=== PATIENT | female | born 1950 | race Caucasian/White ===

== ENCOUNTER 2016-09-11 14:28 | Emergency (ER) | payer OTHER ==
[2016-09-11] MEDS ORDERED: Aspirin 81 MG Tab.Chew CHEW ONE (14:30)
[2016-09-11] MEDS ORDERED: Clopidogrel 75 MG Tab PO ONE (14:30)
[2016-09-11] MEDS ORDERED: Famotidine 20 MG/2 ML SDV IVPUSH ONE (14:30)
[2016-09-11] MEDS ORDERED: Metoprolol Tartrate 5 MG/5 ML SDV IVPUSH ONE (14:30)
[2016-09-11] MEDS ORDERED: Sodium Chloride 0.9% 10 ML Syringe FLUSH PRN (14:30)
--- NOTE | 2016-09-11 14:30 | EDM.PDOC ---
ED HISTORY OF PRESENT ILLNESS - General Chief Complaint: Chest Pain Stated Complaint: Chest pain Time Seen by Provider: 09/11/16 14:30 Source of Information: Reports: Patient, Old records ([facility] chart/EMR) History Limitations: Reports: No limitations - History of Present Illness INITIAL COMMENTS - FREE TEXT/NARRATIVE: The patient drove herself to the emergency room via private automobile for evaluation of 5/10 retrosternal chest pressure which is constant in nature and started about one month ago, however progressive symptoms during the last 4 days. She briefly went to her regular provider, Alecia Alcantar PA-C, at the [facility] in [place], who sent her immediately to our facility with no treatment clinic. Her symptoms are similar to those when she had with her previous stent. Her chest pain does radiate into the upper lumbar/lower thoracic region with possible occasional mild diaphoresis and dyspnea with activity, although her overall activity level is low. The patient denies any heart flutter, dizziness, orthostasis, orthopnea, paresthesias, recent decreased exercise tolerance, or any other anginal-type symptoms. No recent history of abdominal pain, heartburn, nausea, diarrhea, melena, gross hematochezia, or any food intolerance, including fatty foods, etc. with a normal bowel movement at about 9 a.m. this morning. She has had a nonproductive chronic cough with occasional wheezes during the last month, however no history of fever, known exposure to infection, etc. She does continue to smoke and did not get her influenza booster this season or had a Pneumovax. Symptom Onset Date: 09/06/16 Timing/Duration: Reports: Constant, Other (As above) Location, General: Reports: chest, back, radiates to: (As above). Denies: head , face, neck, abdomen, upper extremity, left, upper extremity, right Quality: Reports: Pressure, Same as previous episode Improves with: Reports: None Worsens with: Reports: None Context, General: Reports: Other (As above) Associated Symptoms (General): Reports: chest pain, cough, diaphoresis, shortness of breath. Denies: confusion, cough w sputum, fever/chills, headaches , loss of appetite, malaise, nausea/vomiting, syncope, weakness Treatments MANAGER FORENSIC: Reports: Other (see below) (None) - Related Data Allergies/ADRs: Allergies Allergy/AdvReac Type Severity Reaction Status Date / Time No Known Allergies Allergy Verified 11/23/13 15:03 Home Meds: Home Meds Albuterol/Ipratropium [DuoNeb 3.0-0.5 MG/3 ML] 3 ml NEB Q6HRRT #60 neb 09/11/16 [Rx] Aspirin [Children's Aspirin] 81 mg PO BEDTIME 09/11/16 [History] Carvedilol 12.5 mg PO Q12HR 09/11/16 [History] Clopidogrel [Plavix] 75 mg PO QAM 09/11/16 [History] Furosemide [Lasix] 20 mg PO QAM PRN 09/11/16 [History] Guaifenesin/Pseudoephedrne HCl [Mucinex D ER 600-60 mg Tablet] 1 each PO BID # 20 tab.er.12h 09/11/16 [Rx] Isosorbide Mononitrate [Isosorbide Mononitrate ER] 15 mg PO QAM 09/11/16 [ History] Lisinopril 10 mg PO QAM 09/11/16 [History] Nitroglycerin [Nitrostat] 0.4 mg SL ASDIRECTED PRN 09/11/16 [History] Pravastatin [Pravachol] 40 mg PO BEDTIME 09/11/16 [History] Solifenacin [Vesicare] 5 mg PO QAM 09/11/16 [History] Past Medical History HEENT History: Reports: Impaired vision, Other (see below). Denies: Allergic rhinitis, Glaucoma, Hard of hearing, Macular degeneration, Retinal detachment Other HEENT History: Reading glasses Cardiovascular History: Reports: CAD, Heart Failure, High cholesterol, Hypertension, NE, PTCA, Stents, Other (see below). Denies: Afib, Aneurysm, Arrhythmia, Blood clots/VTE/DVT, Heart murmur, Pacemaker, PVD, Syncope Other Cardiovascular History: Inferior STEMI on 03/18/13 requiring procedure as below Respiratory History: Reports: COPD, Intubation, previous, Other (see below). Denies: Asthma, Bronchitis, recurrent, PE, Pneumonia, recurrent, Pneumothorax, Sleep apnea Other Respiratory History: History of "cracked left ribs in 2005 Gastrointestinal History: Reports: Colon polyp, Gastritis, Helicobacter pylori, Irritable bowel syndrome, Other (see below). Denies: Celiac disease, Cholelithiasis, Chronic constipation, Chronic diarrhea, Diverticulosis, Fecal incontinence, GERD, GI bleed, Hepatitis, Hiatal hernia, Inflammatory bowel disease, Jaundice, Pancreatitis, PUD Other Gastrointestinal History: Previously treated H. pylori in November 2014 Genitourinary History: Reports: Urinary incontinence, Other (see below). Denies : Chronic renal insuffiency, Renal calculus, STD, UTI, recurrent Other Genitourinary History: Urinary stress incontinence OCCUPATIONAL HEALTH PHYSIOTHERAPIST History: Reports: Dysfunctional uterine bleeding, . Denies: Endometriosis, Fibroids, Spontaneous : 3 Para: 3 (Full term without complications during pregnancies or deliveries, despite me for C-sections x3 secondary to her failure to progress) LMP (Approximate): other Other OB/BYN History: Dysfunctional uterine bleeding including secondary hemorrhagic shock on 12/22/07 with blood transfusions as below, surgical menopause as below Musculoskeletal History: Reports: Arthritis, Back pain, chronic, Neck pain, chronic, Osteoarthritis, Osteoporosis, RA, Other (see below). Denies: Amputation, Fracture, Fibromyalgia, Gout, SLE Other Musculoskeletal History: Scoliosis-mild Neurological History: Reports: Neuropathy, peripheral. Denies: Cerebral aneurysms, Concussion, CVA, Headaches, chronic, Head trauma, Migraines, MS, Neuropathy, diabetic, Parkinson's, Seizure, TIA, Vertigo Other Neuro History: Borderline peripheral neuropathy Psychiatric History: Reports: None. Denies: Abuse, victim of, ADD, ADHD, Addiction, Anxiety, Depression, Hallucinations, Psych Hospitalization(s), PTSD, Suicide attempt, Suicidal ideation Endocrine/Metabolic History: Reports: Obesity/BMI 30+, Osteoporosis. Denies: Diabetes, type I, Diabetes, type II, Hypothyroidism, IDDM Hematologic History: Reports: Anemia, Blood transfusion(s), Other (see below). Denies: Iron deficiency Other Hematologic History: Blood transfusion of 6 units of packed red blood cells in December 2007 secondary to dysfunctional uterine bleeding as above Immunologic History: Reports: None. Denies: AIDS, HIV, SLE Oncologic (Cancer) History: Reports: None. Denies: Basal cell carcinoma, Cervix , Hodgkin's Lymphoma, Leukemia, Lymphoma, Malignant melanoma, Non-Hodgkin's Lymphoma, Squamous cell carcinoma, Uterine Dermatologic History: Reports: None. Denies: Eczema, Psoriasis, Venous stasis dermatitis - Infectious Disease History Infectious Disease History: Reports: Chicken pox, Helicobacter pylori (Positive H. pylori on 12/08/14), Measles. Denies: C-difficile, Meningitis, Mononucleosis , MRSA, Mumps, Pertussis (whooping cough), Rheumatic Fever, Rubella, Scarlet fever, Shingles, TB, VRE - Past Surgical History Head Surgeries/Procedures: Reports: None HEENT Surgical History: Reports: LASIK, Oral surgery, Tonsillectomy, Other (see below). Denies: Adenoidectomy, Cataract surgery, Eye surgery, Laser surgery, Myringotomy w tube(s), Naso-sinus surgery Other HEENT Surgeries/Procedures: Tonsillectomy age 13, bilateral LASIK in about 1996, [place] teeth extraction x4 in about 1969 Cardiovascular Surgical History: Reports: Coronary artery stent, Other (see below). Denies: Coronary artery bypass, Pacer, Varicose, Vascular surgery Other Cardiovascular Surgeries/Procedures: PTCA/stent x2 of the right coronary artery on with drug-eluting stents placed and previous aspiration of thrombectomy at that time Respiratory Surgical History: Reports: None. Denies: Lung Biopsies, Thoracentesis GI Surgical History: Reports: None, Colonoscopy, Polypectomy, Other (see below) . Denies: Appendectomy, EGD, Hernia, abdominal, Hernia, inguinal, Hernia repair /other Other GI Surgeries/Procedures: Colonoscopy with polypectomy for benign lesions in about 2002 Female Surgical History: Reports: Hysterectomy, Salpingo-oophorectomy, Other (see below). Denies: Cystoscopy, Tubal ligation Other Female Surgeries/Procedures: Complete hysterectomy including bilateral salpingo-oophorectomy and concomitant bladder suspension on 01/01/08 secondary to severe dysfunctional uterine bleeding with ovarian cyst at that time Endocrine Surgical History: Reports: None. Denies: Thyroid biopsy Neurological Surgical History: Reports: None. Denies: C-Spine, Intracranial, Laminectomy, Lumbar spine, Spinal fusion, Vertebroplasty Musculoskeletal Surgical History: Reports: Joint replacement, Knee replacement, Other (see below). Denies: Arthroscopic procedure, Carpal tunnel, Ganglion cyst , ORIF, Shoulder surgery Other Musculoskeletal Surgeries/Procedures:: Bilateral TKA in about 2010 Oncologic Surgical History: Reports: None Dermatological Surgical History: Reports: None - Past Imaging History Past Imaging History: Reports: Angiography (Last heart catheterization on ), Cardiac echo (03/19/13 with ejection fraction of 55%), CAT scan (CT of the brain on 04/30/15 and 07/20/14), Mammogram (Last on 06/02/15), MRI (Thoracic spine on 09/22/13), Stress testing (Low level cardiac stress test on 04/02/13), Ultrasound (Soft tissue ultrasound of the left leg on 06/02/15), Venous doppler (Left leg on 07/29/14) Social & Family History - Family History Cardiac: Reports: CAD, High cholesterol, NE, Other (see below) Other Cardiac Family History: Mother with NE in her 60s which did require a four -vessel CABG, maternal grandfather with fatal NE at age 40, maternal aunt with fatal NE in her 70s, hyperlipidemia in brother, mother, maternal grandfather, and maternal aunt Respiratory: Reports: COPD, Other (see below) Other Respiratory Family Hisory: Father with COPD and history of tobacco use Musculoskeletal: Reports: RA, Other (see below) Other Musculoskeletal Family History: Father with severe rheumatoid arthritis Neurological: Reports: Parkinson's, Other (see below) Other Neurological Family History: Mother with Parkinson's disease, son with fatal cerebral cyst benign in nature at age 28 Endocrine/Metabolic: Reports: Diabetes, type II, Hypothyroidism, IDDM, Other ( see below) Other Endocrine/Metabolic Family History: Mother with IDDM and history of hypothyroidism secondary to iridectomy possibly secondary to goiter Oncologic: Reports: Breast, Other (see below) Other Oncologic Family History: 3 paternal nieces and a paternal half-sister with breast cancer in a paternal grandmother with fatal possible stomach cancer - Tobacco Use Smoking Status *Q: Current Every Day Smoker Tobacco Use Within Last Twelve Months: Cigarettes Years of Tobacco use: 48 Packs/Tins Daily: 0.5 (Started smoking at age 17 with maximum use of 1.5 packs per day) Smoking Cessation Information Provided To Patient: Yes Second Hand Smoke Exposure: No Second Hand Smoke Education Provided: No - Caffeine Use Caffeine Use: Reports: Soda (One soda per day). Denies: Coffee, Energy drinks, Tea - Alcohol Use Alcohol Use History: Yes Days Per Week of Alcohol Use: 0 (No previous DWIs, problems with alcohol abuse, etc.) Number of Drinks Per Day: 1 (Usually beer every 6 months) Total Drinks Per Week: 0 - Recreational Drug Use Recreational Drug Use: No Drug Use in Last 12 Months: No Recreational Drug Type: Denies: Amphetamines (Speed), Cocaine, Heroin, Inhalants (Glues, Solvents, Aerosols), LSD (Acid), Marijuana/Hashish, Methamphetamine, Morphine - Living Situation & Occupation Living situation: Reports: (1968, 3 children, works in the [employer] previously at [employer] longterm and currently in the [employer]), with family () Occupation: employed (As above) ED ROS GENERAL - Review of Systems Review Of Systems: ROS reveals no pertinent complaints other than HPI. ED EXAM, GENERAL - Physical Exam Exam: See Below Exam Limited By: No limitations General Appearance: alert, WD/WN, no apparent distress, anxious (Mild) Eye Exam: bilateral eye: EOMI, normal inspection (No nystagmus), PERRL Ears: normal external exam, normal canal, hearing grossly normal, normal TMs Nose: normal inspection, normal mucosa, no blood, clear rhinorrhea (Mild) Throat/Mouth: Normal inspection, Normal lips, Normal gums, Normal oropharynx, Normal voice, No airway compromise. No: Normal teeth (Occasional missing teeth) , Dysphagia, Perioral cyanosis Head: atraumatic, normocephalic. No: facial swelling, facial tenderness, sinus tenderness Neck: normal inspection, supple, non-tender, full range of motion. No: carotid bruit, lymphadenopathy (L), lymphadenopathy (R), thyromegaly Respiratory/Chest: no accessory muscle use, chest non-tender, rhonchi ( Occasional mild diffuse bilateral), wheezing (Occasional diffuse bilateral). No : rales, pleural rub, retractions Cardiovascular: normal peripheral pulses, regular rate, rhythm, no edema, no gallop, no JVD, no murmur, no rub. No: gallop/S3, gallop/S4, friction rub Peripheral Pulses: 3+: radial (L), radial (R), dorsalis pedis (L), dorsalis pedis (R) GI/Abdominal: normal bowel sounds, soft, non tender, no organomegaly, no distention, no abnormal bruit, no mass, other (Obese). No: guarding (Female) Exam: Deferred Rectal (Female) Exam: Deferred Back Exam: normal inspection, full range of motion. No: CVA tenderness (L), CVA tenderness (R), muscle spasm Extremities: normal inspection, normal range of motion, non-tender, no pedal edema, normal capillary refill. No: Rohan's Sign Neurological: alert, oriented, CN II-XII intact, normal cognition, normal gait, normal reflexes (Negative Babinski), no motor/sensory deficits Psychiatric: anxious (Mild), depressed mood (Borderline) Skin Exam: Warm, Dry, Intact, Normal color, No rash. No: Diaphoretic, Wound/ incision Lymphatic: no adenopathy EKG INTERPRETATION EKG Date: 09/11/16 Time: 14:24 Rhythm: NSR Rate (beats/min): 76 [place]: normal (Neutral cardiac axis) P-wave: enlarged (Mild Diffuse biphasic P waves with pulmonary hypertension by EKG) QRS: normal (QRS interval of 0.09 seconds with resolution of previous T-wave inversion in lead 3) ST-T: normal QT: normal MO/PQ Interval: 0.17 seconds Comparison: change from previous EKG (As above since 05/20/13) EKG Interpretation Comments: No acute ischemic changes Course - Vital Signs Last Recorded V/S: Last Vital Signs Temp 36.8 C 09/11/16 14:43 Pulse 67 09/11/16 15:50 Resp 19 09/11/16 15:50 BP 154/86 H 09/11/16 15:50 Pulse Ox 99 09/11/16 15:50 Vital Signs - 24 hr 09/11/16 09/11/16 09/11/16 14:30 14:43 14:50 Temperature [ 36.9 C 36.8 C Oral] Pulse, Peripheral Pulse, 74 73 69 Peripheral [ Right Pulse Oximetry] Respiratory 20 20 22 H Rate Blood Pressure Blood Pressure 158/82 H 157/75 H [Left Lower Arm ] Blood Pressure 164/90 H [Right Upper Arm] O2 Sat by Pulse 98 98 98 Oximetry O2 Sat by Pulse 98 Oximetry [ Nasal Cannula] 09/11/16 09/11/16 09/11/16 15:01 15:15 15:50 Temperature [ Oral] Pulse, 76 Peripheral Pulse, 70 67 Peripheral [ Right Pulse Oximetry] Respiratory 23 H 19 Rate Blood Pressure 158/82 H Blood Pressure 154/79 H 154/86 H [Left Lower Arm ] Blood Pressure [Right Upper Arm] O2 Sat by Pulse 98 99 Oximetry O2 Sat by Pulse Oximetry [ Nasal Cannula] - Orders/Labs/Meds Orders: Active Orders 24 hr Category Date Time Status Cardiac Monitoring [RC] . DIRECTED Care 09/11/16 14:30 Active EKG Documentation Completion [RC] ASDIRECTED Care 09/11/16 14:30 Active EKG Documentation Completion [RC] STAT Care 09/11/16 14:30 Inactive Oxygen Therapy, ED [RC] CONTINUOUS Care 09/11/16 14:30 Active Peripheral IV Care [RC] . DIRECTED Care 09/11/16 14:30 Active Peripheral IV Care [RC] . DIRECTED Care 09/11/16 14:30 Inactive Pulse Oximetry [RC] CONTINUOUS Care 09/11/16 14:30 Active Up With Assistance [RC] PFP Care 09/11/16 14:30 Active Vital Signs [RC] PFP Care 09/11/16 14:30 Active Nothing per Oral Now Diet [DIET] Diet 09/11/16 Breakfast Active Chest 1V Frontal [CR] Stat Exams 09/11/16 14:30 Taken Sodium Chloride 0.9% [Saline Flush] Med 09/11/16 14:30 Active 10 ml FLUSH ASDIRECTED PRN Obtain Past Medical Record [OM.PC] Urgent Oth 09/11/16 14:30 Active Peripheral IV Insertion Adult [OM.PC] Stat Oth 09/11/16 14:30 Ordered Resuscitation Status Stat Resus Stat 09/11/16 14:30 Ordered Medication Orders Sodium Chloride (Saline Flush) 10 ml FLUSH ASDIRECTED PRN PRN Reason: Keep Vein Open Last Admin: 09/11/16 15:01 Dose: 10 ml Labs: Laboratory Tests 09/11/16 09/11/16 09/11/16 Range/Units 14:30 14:40 14:40 WBC 9.3 (4.0-10.2) K/uL RBC 4.70 (3.77-5.09) M/uL Hgb 14.6 (11.7-15.5) g/dL Hct 44.3 (34.0-46.0) % MCV 94.3 (84.0-98.0) fL MCH 31.1 (28.2-33.3) pg MCHC 33.0 (31.7-36.0) g/dL RDW 13.8 (11.2-14.1) % Plt Count 242 (150-350) K/uL Neut % (Auto) 57.4 (45.0-80.0) % Lymph % (Auto) 29.4 (10.0-50.0) % [place] % (Auto) 9.9 (2.0-14.0) % Eos % (Auto) 3.0 (0.0-5.0) % Baso % (Auto) 0.3 (0.0-2.0) % Neut # 5.31 (1.40-7.00) K/uL Lymph # 2.73 (0.50-3.50) K/uL [place] # 0.92 (0.00-1.00) K/uL Eos # 0.28 (0.00-0.50) K/uL Baso # 0.03 (0.00-0.20) K/uL PT 11.0 (9.8-11.7) SEC INR 1.0 APTT 27.5 (23.5-30.0) SEC D-Dimer, Quantitative 245 (0-400) ng/mL Sodium (136-145) mmol/L Potassium (3.5-5.1) mmol/L Chloride (98-107) mmol/L Carbon Dioxide (21.0-32.0) mmol/L BUN (7-18) mg/dL Creatinine (0.51-1.17) mg/dL Est Cr Clr Drug Dosing mL/min Estimated GFR (MDRD) mL/min Glucose (74-106) mg/dL Lactic Acid (0.4-2.0) mmol/L Uric Acid (2.6-7.2) mg/dL Calcium (8.5-10.1) mg/dL Magnesium (1.8-2.4) mg/dL Total Bilirubin (0.2-1.0) mg/dL AST (15-37) U/L ALT (12-78) U/L Alkaline Phosphatase (46-116) IU/L Creatine Kinase (26-308) U/L Creatine Kinase Index (0.0-2.5) % CK-MB (CK-2) (0.00-3.60) ng/mL Troponin I (0.000-0.056) ng/mL Het-[id number]-Cqktlhzepeo Pept (0-125) pg/mL Total Protein (6.4-8.2) g/dL Albumin (3.4-5.0) g/dL TSH, Ultra Sensitive (0.358-3.740) mIU/mL H. pylori IgG Antibody (NEGATIVE) 09/11/16 09/11/16 09/11/16 Range/Units 14:40 14:40 14:40 WBC (4.0-10.2) K/uL RBC (3.77-5.09) M/uL Hgb (11.7-15.5) g/dL Hct (34.0-46.0) % MCV (84.0-98.0) fL MCH (28.2-33.3) pg MCHC (31.7-36.0) g/dL RDW (11.2-14.1) % Plt Count (150-350) K/uL Neut % (Auto) (45.0-80.0) % Lymph % (Auto) (10.0-50.0) % [place] % (Auto) (2.0-14.0) % Eos % (Auto) (0.0-5.0) % Baso % (Auto) (0.0-2.0) % Neut # (1.40-7.00) K/uL Lymph # (0.50-3.50) K/uL [place] # (0.00-1.00) K/uL Eos # (0.00-0.50) K/uL Baso # (0.00-0.20) K/uL PT (9.8-11.7) SEC INR APTT (23.5-30.0) SEC D-Dimer, Quantitative (0-400) ng/mL Sodium 142 (136-145) mmol/L Potassium 4.1 (3.5-5.1) mmol/L Chloride 104 (98-107) mmol/L Carbon Dioxide 29.9 (21.0-32.0) mmol/L BUN 25 H (7-18) mg/dL Creatinine 0.89 (0.51-1.17) mg/dL Est Cr Clr Drug Dosing 55.14 mL/min Estimated GFR (MDRD) > 60 mL/min Glucose 106 (74-106) mg/dL Lactic Acid 1.1 (0.4-2.0) mmol/L Uric Acid 4.9 (2.6-7.2) mg/dL Calcium 8.6 (8.5-10.1) mg/dL Magnesium 1.9 (1.8-2.4) mg/dL Total Bilirubin 0.4 (0.2-1.0) mg/dL AST 16 (15-37) U/L ALT 31 (12-78) U/L Alkaline Phosphatase 74 (46-116) IU/L Creatine Kinase 227 (26-308) U/L Creatine Kinase Index 1.5 (0.0-2.5) % CK-MB (CK-2) 3.50 (0.00-3.60) ng/mL Troponin I 0.000 (0.000-0.056) ng/mL [id number] Pept 153 H (0-125) pg/mL Total Protein 7.3 (6.4-8.2) g/dL Albumin 3.6 (3.4-5.0) g/dL TSH, Ultra Sensitive 1.159 (0.358-3.740) mIU/mL H. pylori IgG Antibody Negative (NEGATIVE) Meds: Medications Generic Name Dose Route Start Last Admin Trade Name Freq PRN Reason Stop Dose Admin Sodium Chloride 10 ml 09/11/16 14:30 09/11/16 15:01 Saline Flush FLUSH 10 ml ASDIRECTED PRN Administration Keep Vein Open Discontinued Medications Generic Name Dose Route Start Last Admin Trade Name Yg PRN Reason Stop Dose Admin Aspirin 324 mg 09/11/16 14:30 09/11/16 14:58 Aspirin CHEW 09/11/16 14:31 324 mg ONETIME ONE Administration Clopidogrel Bisulfate 300 mg 09/11/16 14:30 09/11/16 14:58 Plavix PO 09/11/16 14:31 300 mg ONETIME ONE Administration Famotidine 40 mg 09/11/16 14:30 09/11/16 15:00 Pepcid IVPUSH 09/11/16 14:31 40 mg ONETIME ONE Administration Methylprednisolone Acetate 80 mg 09/11/16 15:35 09/11/16 15:44 Depo-Medrol IM 09/11/16 15:36 80 mg ONETIME ONE Administration Metoprolol Tartrate 2.5 mg 09/11/16 14:30 09/11/16 15:01 Lopressor IVPUSH 09/11/16 14:31 2.5 mg ONETIME ONE Administration - Radiology Interpretation Free Text/Narrative:: Front Office Coordinator shows normal sinus rhythm with heart rate in the 70s to 80s with no ectopy or arrhythmia Chest x-ray, portable, shows moderate to severe COPD changes with mild pulmonary hypertension and/or borderline centralized CHF with moderate cardiomegaly and aortic valve calcification with mild prominence of the proximal aortic arch. No pulmonary infiltrates or pneumothorax Departure - Departure Time of Disposition: 16:10 Disposition: Home, Self-Care 01 Condition: good Clinical Impression: Tobacco abuse counseling Coronary artery disease Qualifiers: Coronary Disease-Associated Artery/Lesion type: pala artery [place] vs. transplanted heart: pala heart Associated angina: with stable angina Qualified Code(s): I25.118 - Atherosclerotic heart disease of [place] coronary artery with other forms of angina pectoris COPD (chronic obstructive pulmonary disease) Qualifiers: COPD type: emphysema Emphysema type: panlobular Qualified Code(s): J43.1 - Panlobular emphysema Hypertension Qualifiers: Hypertension type: essential hypertension Qualified Code(s): I10 - Essential ( primary) hypertension Hyperlipidemia Qualifiers: Hyperlipidemia type: unspecified Qualified Code(s): E78.5 - Hyperlipidemia, unspecified Osteoarthritis Qualifiers: Osteoarthritis location: multiple joints Osteoarthritis type: primary Qualified Code(s): M15.0 - Primary generalized (osteo)arthritis Prescriptions: Albuterol/Ipratropium [DuoNeb 3.0-0.5 MG/3 ML] 3 ml NEB Q6HRRT #60 neb Guaifenesin/Pseudoephedrne HCl [Mucinex D ER 600-60 mg Tablet] 1 each PO BID # 20 tab.er.12h Referrals: Alecia Stone PA-C [Primary Care Provider] - Forms: ED Department Discharge, Return to Work/School Form Additional Instructions: 1. Followup with your regular provider in 10-14 days as directed. 2. Discuss possible scheduling of lung function test/PFTs and/or further cardiac evaluation, including a Cardiolite stress test at followup visit depending on her clinical course 3. Consider increase of your Imdur therapy at followup 4. Discuss recommended update of your routine preventative healthcare, including influenza booster, Pneumovax, colonoscopy, mammogram, etc. 5. Work excuse- See Form 6. BenGay or equivalent, heating pad, and/or ice packs as directed. 7. Tylenol 650 mg by mouth every 4 hours and/or OTC ibuprofen 2-3 tabs by mouth every 6 hours with food as directed./needed. 8. Stop all tobacco use CELINA as directed/per provided information and consider contacting Quit LIne, etc.. - Problem List & Annotations (1) Coronary artery disease SNOMED Code(s): 82274014 Code(s): I25.10 - ATHSCL HEART DISEASE OF [place] CORONARY ARTERY W/O ANG PCTRS Status: Acute Priority: High Current Visit: Yes Annotation/Comment :: Recent chest pain as above with negative EKG, cardiac enzymes, etc. Only mild borderline BNP elevation with no clinical evidence of significant CHF. Various therapeutic options were discussed with the patient, who wishes to consider possible increase of her current Imdur. Further cardiac workup depending on her clinical course as per discharge instructions. Work excuse provided. Chest pain protocol was initiated in the emergency room including low -dose IV Lopressor Qualifiers: Coronary Disease-Associated Artery/Lesion type: pala artery [place] vs. transplanted heart: pala heart Associated angina: with stable angina Qualified Code(s): I25.118 - Atherosclerotic heart disease of [place] coronary artery with other forms of angina pectoris (2) COPD (chronic obstructive pulmonary disease) SNOMED Code(s): 09535209 Code(s): J44.9 - CHRONIC OBSTRUCTIVE PULMONARY DISEASE, UNSPECIFIED Status : Chronic Priority: Medium Current Visit: Yes Annotation/Comment:: COPD under moderate control based on clinical exam. Various therapeutic options were discussed with the patient agreeing to restart her previous distant nebulizer therapy. Continue to observe closely by her regular provider with consideration of PFTs as per discharge instructions. IM Depo-Medrol given in the emergency room. No evidence of recurrent bronchitis, pneumonia, etc. at this time with no indication for antibiotic therapy. Add Mucinex DM as a mucolytic agent Qualifiers: COPD type: emphysema Emphysema type: panlobular Qualified Code(s): J43.1 - Panlobular emphysema (3) Hyperlipidemia SNOMED Code(s): 96914925 Code(s): E78.5 - HYPERLIPIDEMIA, UNSPECIFIED Status: Chronic Priority: Medium Current Visit: Yes Annotation/Comment:: Currently under therapy Qualifiers: Hyperlipidemia type: unspecified Qualified Code(s): E78.5 - Hyperlipidemia , unspecified (4) Hypertension SNOMED Code(s): 08774628 Code(s): I10 - ESSENTIAL (PRIMARY) HYPERTENSION Status: Chronic Priority : Medium Current Visit: Yes Annotation/Comment:: Blood pressures mildly elevated in the emergency room. She would benefit from increase of her Imdur as above Qualifiers: Hypertension type: essential hypertension Qualified Code(s): I10 - Essential (primary) hypertension (5) Osteoarthritis SNOMED Code(s): 923169124 Code(s): M19.90 - UNSPECIFIED OSTEOARTHRITIS, UNSPECIFIED SITE Status: Chronic Priority: Medium Current Visit: Yes Annotation/Comment:: Stable by patient history with exception of back pain as above. Symptomatic relief as per discharge instructions Qualifiers: Osteoarthritis location: multiple joints Osteoarthritis type: primary Qualified Code(s): M15.0 - Primary generalized (osteo)arthritis (6) Tobacco abuse counseling SNOMED Code(s): 810822791, 367880450, 772596068 Code(s): Z71.6 - TOBACCO ABUSE COUNSELING Status: Chronic Priority: Medium Current Visit: Yes Annotation/Comment:: Tobacco cessation strongly encouraged with information provided - Problem List Review Problem List Initiated/Reviewed/Updated: Yes - My Orders Last 24 Hours: My Active Orders 09/11/16 14:30 Cardiac Monitoring [RC] . DIRECTED EKG Documentation Completion [RC] ASDIRECTED EKG Documentation Completion [RC] STAT Oxygen Therapy, ED [RC] CONTINUOUS Peripheral IV Care [RC] . DIRECTED Peripheral IV Care [RC] . DIRECTED Pulse Oximetry [RC] CONTINUOUS Up With Assistance [RC] PFP Vital Signs [RC] PFP Chest 1V Frontal [CR] Stat Sodium Chloride 0.9% [Saline Flush] 10 ml FLUSH ASDIRECTED PRN Obtain Past Medical Record [OM.PC] Urgent Peripheral IV Insertion Adult [OM.PC] Stat Resuscitation Status Stat 09/11/16 Breakfast Nothing per Oral Now Diet [DIET] - Assessment/Plan Last 24 Hours: My Active Orders 09/11/16 14:30 Cardiac Monitoring [RC] . DIRECTED EKG Documentation Completion [RC] ASDIRECTED EKG Documentation Completion [RC] STAT Oxygen Therapy, ED [RC] CONTINUOUS Peripheral IV Care [RC] . DIRECTED Peripheral IV Care [RC] . DIRECTED Pulse Oximetry [RC] CONTINUOUS Up With Assistance [RC] PFP Vital Signs [RC] PFP Chest 1V Frontal [CR] Stat Sodium Chloride 0.9% [Saline Flush] 10 ml FLUSH ASDIRECTED PRN Obtain Past Medical Record [OM.PC] Urgent Peripheral IV Insertion Adult [OM.PC] Stat Resuscitation Status Stat 09/11/16 Breakfast Nothing per Oral Now Diet [DIET] Assessment:: As above Plan: As above.
[2016-09-11 15:14] LABS: CHLORIDE,CL 104 mmol/L (98-107); SODIUM,NA 142 mmol/L (136-145)
[2016-09-11] MEDS ORDERED: methylPREDNISolone Acetate 80 MG/ML SDV IM ONE (15:35)
[2016-09-11 16:12] VITALS: BP 154/86
== END 2016-09-11 16:10 | disposition home or self-care (01) ==
LOC: LL.ED 14:28
DX: I25.118 Atherosclerotic heart disease of native coronary artery with other forms of angina pectoris (principal); J43.1 Panlobular emphysema; E78.5 Hyperlipidemia, unspecified; M15.0 Primary generalized (osteo)arthritis; I11.0 Hypertensive heart disease with heart failure; E78.00 Pure hypercholesterolemia, unspecified; I25.2 Old myocardial infarction; Z79.82 Long term (current) use of aspirin; Z72.0 Tobacco use
CPT/HCPCS: 36415; 71010; 80053; 82550; 82553; 83605; 83735; 83880; 84443; 84484; 84550; 85025; 85379; 85610; 85730; 86318; 93005; 96372; 96374; 96375; 99285; A9270; J1040; J7050; J3490; S0028

== ENCOUNTER 2020-03-09 13:25 | Emergency (ER) | payer MEDICARE, BC ==
[2020-03-09 14:11] VITALS: BP 164/65; PULSE 78
[2020-03-09 14:13] LABS: CHLORIDE,CL 104 mmol/L (98-107); SODIUM,NA 141 mmol/L (136-145)
--- NOTE | 2020-03-09 14:36 | EDM.PDOC ---
ED HPI GENERAL MEDICAL PROBLEM - General Chief Complaint: Cardiovascular Problem Stated Complaint: Back Pain/CP Time Seen by Provider: 03/09/20 13:37 Source of Information: Reports: Patient History Limitations: Reports: No Limitations - History of Present Illness INITIAL COMMENTS - FREE TEXT/NARRATIVE: Upper back pain for 2 weeks Worse with movement or lifting No fever No cough Has not been seen in clinic Has hx/o CAD and previous DE so came in today to be checked Onset: Gradual Duration: Day(s):, Week(s):, Intermittent Location: Reports: Back Quality: Reports: Stabbing Severity: Moderate Improves with: Reports: Immobilization Worsens with: Reports: Movement - Related Data Allergies Allergy/AdvReac Type Severity Reaction Status Date / Time No Known Allergies Allergy Verified 11/23/13 15:03 Home Meds: Home Meds Albuterol/Ipratropium [DuoNeb 3.0-0.5 MG/3 ML] 3 ml NEB Q6HRRT #60 neb 09/11/16 [Rx] Aspirin [Children's Aspirin] 81 mg PO BEDTIME 09/11/16 [History] Clopidogrel [Plavix] 75 mg PO QAM 09/11/16 [History] Furosemide [Lasix] 20 mg PO QAM PRN 09/11/16 [History] Guaifenesin/Pseudoephedrne HCl [Mucinex D ER 600-60 mg Tablet] 1 each PO BID #20 tab.er.12h 09/11/16 [Rx] Isosorbide Mononitrate [Isosorbide Mononitrate ER] 15 mg PO QAM 09/11/16 [History] Lisinopril 10 mg PO QAM 09/11/16 [History] Nitroglycerin [Nitrostat] 0.4 mg SL ASDIRECTED PRN 09/11/16 [History] Pravastatin [Pravachol] 40 mg PO BEDTIME 09/11/16 [History] Solifenacin [Vesicare] 5 mg PO QAM 09/11/16 [History] carvediloL [Carvedilol] 12.5 mg PO Q12HR 09/11/16 [History] Past Medical History HEENT History: Reports: Impaired Vision, Other (See Below) Other HEENT History: Reading glasses Cardiovascular History: Reports: CAD, Heart Failure, High Cholesterol, Hypertension, DE, PTCA, Stents, Other (See Below) Other Cardiovascular History: Inferior STEMI on 03/18/13 requiring procedure as below Respiratory History: Reports: COPD, Intubation, Previous, Other (See Below) Other Respiratory History: History of "cracked left ribs in 2005 Gastrointestinal History: Reports: Colon Polyp, Gastritis, Helicobacter Pylori, Irritable Bowel Syndrome, Other (See Below) Other Gastrointestinal History: Previously treated H. 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 Denies: Abuse, Victim of, ADD, ADHD, Addiction, Anxiety, Depression, Hallucinations, Psych Hospitalization(s), PTSD, Suicide Attempt, Suicidal Ideation Endocrine/Metabolic History: Reports: Obesity/BMI 30+, Osteoporosis. Denies: Diabetes, Type I, Diabetes, Type II, Hypothyroidism, IDDM Hematologic History: Reports: Anemia, Blood Transfusion(s), Other (See Below) Other Hematologic History: Blood transfusion of 6 units of packed red blood cells in December 2007 secondary to dysfunctional uterine bleeding as above Immunologic History: Reports: None. Denies: AIDS, HIV, SLE Oncologic (Cancer) History: Reports: None. Denies: Basal Cell Carcinoma, Cerv ix, Hodgkin's Lymphoma, Leukemia, Lymphoma, Malignant Melanoma, Non-Hodgkin's Lymphoma, Squamous Cell Carcinoma, Uterine Dermatologic History: Reports: None. Denies: Eczema, Psoriasis, Venous Stasis Dermatitis - Infectious Disease History Infectious Disease History: Reports: Chicken Pox, Helicobacter Pylori, Measles - Past Surgical History HEENT Surgical History: Reports: LASIK, Oral Surgery, Tonsillectomy, Other (See Below) Cardiovascular Surgical History: Reports: Coronary Artery Stent, Other (See Below) GI Surgical History: Reports: None, Colonoscopy, Polypectomy, Other (See Below) Female Surgical History: Reports: Hysterectomy, Salpingo-Oophorectomy, Other (See Below) Musculoskeletal Surgical History: Reports: Joint Replacement, Knee Replacement, Other (See Below) - Past Imaging History Past Imaging History: Reports: Angiography, Cardiac Echo, CAT Scan, Mammogram, MRI, Stress Testing, Ultrasound, Venous Doppler Social & Family History - Family History Cardiac: Reports: CAD, High Cholesterol, DE, Other (See Below) Other Cardiac Family History: Mother with DE in her 60s which did require a four-vessel CABG, maternal grandfather with fatal DE at age 40, maternal aunt with fatal DE in her 70s, hyperlipidemia in brother, mother, maternal grandf ather, and maternal aunt Respiratory: Reports: COPD, Other (See Below) Other Respiratory Family Hisory: Father with COPD and history of tobacco use Musculoskeletal: Reports: RA, Other (See Below) Other Musculoskeletal Family History: Father with severe rheumatoid arthritis Neurological: Reports: Parkinson's, Other (See Below) Other Neurological Family History: Mother with Parkinson's disease, son with fatal cerebral cyst benign in nature at age 28 Endocrine/Metabolic: Reports: Diabetes, type II, Hypothyroidism, IDDM, Other (See Below) Other Endocrine/Metabolic Family History: Mother with IDDM and history of hypothyroidism secondary to iridectomy possibly secondary to goiter Oncologic: Reports: Breast, Other (See Below) Other Oncologic Family History: 3 paternal nieces and a paternal half-sister with breast cancer in a paternal grandmother with fatal possible stomach cancer - Caffeine Use Caffeine Use: Reports: Soda (One soda per day). Denies: Coffee, Energy Drinks, Tea - Living Situation & Occupation Living situation: Reports: , with Family Occupation: Employed ED ROS GENERAL - Review of Systems Review Of Systems: See Below Respiratory: Reports: No Symptoms Cardiovascular: Reports: No Symptoms Musculoskeletal: Reports: Back Pain ED EXAM, GENERAL - Physical Exam Exam: See Below Exam Limited By: No Limitations General Appearance: Alert, WD/WN, Mild Distress Neck: Supple Respiratory/Chest: Lungs Clear Cardiovascular: Regular Rate, Rhythm GI/Abdominal: Non-Tender Extremities: Other (Upper backend java developer) Neurological: Alert, Oriented, No Motor/Sensory Deficits Course - Vital Signs Last Recorded V/S: Last Vital Signs Temp 98 F 03/09/20 13:25 Pulse 78 03/09/20 14:00 Resp 22 H 03/09/20 14:00 BP 164/65 H 03/09/20 14:00 Pulse Ox 93 L 03/09/20 14:00 - Orders/Labs/Meds Orders: Active Orders 24 hr Category Date Time Status EKG Documentation Completion [RC] ASDIRECTED Care 03/09/20 13:32 Active Chest 2V [CR] Stat Exams 03/09/20 13:37 Taken Labs: Laboratory Tests 03/09/20 03/09/20 Range/Units 13:45 13:45 WBC 7.6 (4.0-10.2) K/uL RBC 4.97 (3.77-5.09) M/uL Hgb 15.4 (11.7-15.5) g/dL Hct 46.7 H (34.0-46.0) % MCV 94.0 (84.0-98.0) fL MCH 31.0 (28.2-33.3) pg MCHC 33.0 (31.7-36.0) g/dL RDW 13.6 (11.2-14.1) % Plt Count 219 (150-350) K/uL Neut % (Auto) 54.8 (45.0-80.0) % Lymph % (Auto) 34.1 (10.0-50.0) % [place] % (Auto) 7.6 (2.0-14.0) % Eos % (Auto) 3.1 (0.0-5.0) % Baso % (Auto) 0.4 (0.0-2.0) % Neut # (Auto) 4.17 (1.40-7.00) K/uL Lymph # (Auto) 2.60 (0.50-3.50) K/uL [place] # (Auto) 0.58 (0.00-1.00) K/uL Eos # (Auto) 0.24 (0.00-0.50) K/uL Baso # (Auto) 0.03 (0.00-0.20) K/uL Sodium 141 (136-145) mmol/L Potassium 3.7 (3.5-5.1) mmol/L Chloride 104 (98-107) mmol/L Carbon Dioxide 26.2 (21.0-32.0) mmol/L BUN 26 H (7-18) mg/dL Creatinine 0.67 (0.51-1.17) mg/dL Est Cr Clr Drug Dosing TNP Estimated GFR (MDRD) > 60 mL/min Glucose 136 H (74-106) mg/dL Calcium 8.6 (8.5-10.1) mg/dL Total Bilirubin 0.3 (0.2-1.0) mg/dL AST 18 (15-37) U/L ALT 30 (12-78) U/L Alkaline Phosphatase 73 (46-116) IU/L Troponin I 0.000 (0.000-0.056) ng/mL Total Protein 7.3 (6.4-8.2) g/dL Albumin 3.5 (3.4-5.0) g/dL - Re-Assessments/Exams Free Text/Narrative Re-Assessment/Exam: 03/09/20 14:33 See lab and xray Pt stable in ER Rx Diclofenac Rx Flexeril Departure - Departure Time of Disposition: 14:35 Disposition: Home, Self-Care 01 Clinical Impression: Back pain Qualifiers: Back pain location: thoracic back pain Back pain laterality: unspecified Instructions: Acute Back Pain, Adult Referrals: Alecia Stone PA-C [Primary Care Provider] - Additional Instructions: Follow up in clinic Rx Diclofenac 75 mg BID prn pain Rx Flexeril 10 mg TID prn spasm Sepsis Event Note (ED) - Evaluation Sepsis Screening Result: No Definite Risk - Focused Exam Vital Signs: Vital Signs Temp Pulse Resp BP Pulse Ox 03/09/20 14:00 78 22 H 164/65 H 93 L 03/09/20 13:25 98 F 80 20 156/53 H 93 L - My Orders Last 24 Hours: My Active Orders 03/09/20 13:32 EKG Documentation Completion [RC] ASDIRECTED 03/09/20 13:37 Chest 2V [CR] Stat - Assessment/Plan Last 24 Hours: My Active Orders 03/09/20 13:32 EKG Documentation Completion [RC] ASDIRECTED 03/09/20 13:37 Chest 2V [CR] Stat
== END 2020-03-09 14:45 | disposition home or self-care (01) ==
LOC: LL.ED 13:25
DX: M54.6 Pain in thoracic spine (principal); I25.10 Atherosclerotic heart disease of native coronary artery without angina pectoris; E78.00 Pure hypercholesterolemia, unspecified; I11.0 Hypertensive heart disease with heart failure; I50.9 Heart failure, unspecified; J44.9 Chronic obstructive pulmonary disease, unspecified; I25.2 Old myocardial infarction; M19.90 Unspecified osteoarthritis, unspecified site; M41.9 Scoliosis, unspecified; E66.9 Obesity, unspecified; G62.9 Polyneuropathy, unspecified; Z79.82 Long term (current) use of aspirin; Z79.02 Long term (current) use of antithrombotics/antiplatelets; Z79.899 Other long term (current) drug therapy
CPT/HCPCS: 36415; 71046; 80053; 84484; 85025; 93005; 99283; 99284-25

== ENCOUNTER 2024-04-16 09:13 | Day surgery (SDC) | payer MEDICARE, BC ==
[~2024-04-16 09:13] MED LIST: Midazolam 1 MG/ML 2 ML SDV ONE; Propofol 200 MG/20 ML SDV ONE
[2024-04-16] MEDS: Lactated Ringers 1,000 ML IV SCH (10:18)
[2024-04-16] MEDS ORDERED: Sodium Chloride 0.9% 10 ML Syringe FLUSH PRN (10:30)
[2024-04-16 11:40] VITALS: BP 116/48; PULSE 74
== END 2024-04-16 12:12 | disposition home or self-care (01) ==
LOC: LL.SDS 09:13
PROVIDERS: ATTEND Surgery
DX: Z12.11 Encounter for screening for malignant neoplasm of colon (principal); N32.81 Overactive bladder; I11.0 Hypertensive heart disease with heart failure; I50.9 Heart failure, unspecified; E11.9 Type 2 diabetes mellitus without complications; L81.9 Disorder of pigmentation, unspecified; E78.5 Hyperlipidemia, unspecified; I25.10 Atherosclerotic heart disease of native coronary artery without angina pectoris; E66.01 Morbid (severe) obesity due to excess calories; F17.210 Nicotine dependence, cigarettes, uncomplicated; Z68.43 Body mass index [BMI] 50.0-59.9, adult; Z79.899 Other long term (current) drug therapy; Z79.82 Long term (current) use of aspirin; Z86.0100 Personal history of colon polyps, unspecified
CPT/HCPCS: J2250; J2704; J7120

== ENCOUNTER 2024-05-08 11:48 | Emergency (ER) | payer MEDICARE, BC ==
[2024-05-08] MEDS: Acetaminophen 500 MG Tab PO ONE (12:44)
[2024-05-08 13:00] LABS: CORONAVIRUS COVID-19 NAA NEGATIVE (NEGATIVE); INFLUENZA A NAA NEGATIVE (NEGATIVE); INFLUENZA B NAA NEGATIVE (NEGATIVE); RESPIRATORY SYNCYTIAL VIR NAA NEGATIVE (NEGATIVE)
[2024-05-08 13:02] VITALS: BP 133/74; PULSE 78
== END 2024-05-08 14:20 | disposition home or self-care (01) ==
LOC: LL.ED 11:48
DX: J18.9 Pneumonia, unspecified organism (principal); I25.10 Atherosclerotic heart disease of native coronary artery without angina pectoris; I11.0 Hypertensive heart disease with heart failure; I50.9 Heart failure, unspecified; E78.00 Pure hypercholesterolemia, unspecified; I25.2 Old myocardial infarction; Z95.5 Presence of coronary angioplasty implant and graft; J44.9 Chronic obstructive pulmonary disease, unspecified; M19.90 Unspecified osteoarthritis, unspecified site; E11.40 Type 2 diabetes mellitus with diabetic neuropathy, unspecified; Z90.49 Acquired absence of other specified parts of digestive tract; Z90.710 Acquired absence of both cervix and uterus; Z79.82 Long term (current) use of aspirin; Z79.899 Other long term (current) drug therapy; Z88.8 Allergy status to other drugs, medicaments and biological substances
CPT/HCPCS: 0241U; 71045; 99284; A9270

== ENCOUNTER 2024-05-14 15:47 | Inpatient (IN) | payer MEDICARE, BC ==
[2024-05-14] MEDS: Iopamidol 755 Mg/ML 100 ML Bottle IVPUSH ONE (17:01)
[2024-05-14 17:28] LABS: CORONAVIRUS COVID-19 NAA NEGATIVE (NEGATIVE); INFLUENZA A NAA NEGATIVE (NEGATIVE); INFLUENZA B NAA NEGATIVE (NEGATIVE); RESPIRATORY SYNCYTIAL VIR NAA NEGATIVE (NEGATIVE)
[2024-05-14] MEDS: methylPREDNISolone Sodium Succinate 125 MG/2 ML SDV IVPUSH ONE ×2 (17:55→19:26)
[2024-05-14] MEDS: cefTRIAXone 2 GM in Sodium Chloride 0.9% 100 ML IV SCH (17:56)
[2024-05-14] MEDS: Azithromycin 500 MG in Sodium Chloride 0.9% 250 ML IV SCH (18:42)
[2024-05-14] MEDS ORDERED: Acetaminophen 325 MG Tab PO PRN (18:49)
[2024-05-14] MEDS ORDERED: Ondansetron 4 MG/2 ML SDV IVPUSH PRN (18:49)
[2024-05-14] MEDS ORDERED: Nitroglycerin 0.4 MG Tab.SL SL PRN ×2 (18:52→19:27)
[2024-05-14] MEDS ORDERED: Benzonatate 100 MG Cap PO PRN (18:57)
[2024-05-14] MEDS ORDERED: Losartan 50 MG Tab PO SCH (19:00)
[2024-05-14] MEDS ORDERED: Aspirin 81 MG Tab.Chew PO SCH (20:00)
[2024-05-14] MEDS: guaiFENesin 600 MG Tab.ER PO SCH (21:09)
[2024-05-14] MEDS: Aspirin 81 MG Tab.Chew PO SCH (21:10)
[2024-05-14] MEDS: Albuterol/Ipratropium 3.0-0.5 MG/3 ML Neb Soln NEB SCH (21:18)
[2024-05-14] MEDS: Carvedilol 12.5 MG Tab PO SCH (21:18)
[2024-05-14] MEDS: Gabapentin 300 MG Cap PO SCH (21:20)
[2024-05-14] MEDS: DULoxetine 20 MG Cap PO SCH (21:20)
[2024-05-14] MEDS: Losartan 50 MG Tab PO SCH (21:20)
[2024-05-14] MEDS: Carvedilol 12.5 MG Tab ONE (21:21)
[2024-05-15 07:58] LABS: HEMATOCRIT 45.3 % (34.0-46.0); HEMOGLOBIN 14.5 g/dL (11.7-15.5); LYMPHOCYTES PERCENT AUTO 10.6 % (10.0-50.0); MEAN CORPUSCULAR HEMOGLOBIN 30.6 pg (28.2-33.3); MEAN CORPUSCULAR VOLUME 95.6 fL (84.0-98.0); MONOCYTES PERCENT AUTO 1.8 % (2.0-14.0); NEUTROPHILS PERCENT AUTO 87.5 % (45.0-80.0); PLATELET COUNT,PLT 327 K/uL (150-350); RED BLOOD CELL COUNT 4.74 M/uL (3.77-5.09); RED CELL DISTRIBUTION WIDTH 15.3 % (11.2-14.1); WHITE BLOOD CELL COUNT,WBC 11.4 K/uL (4.0-10.2)
[2024-05-15 07:59] LABS: BASOPHILS ABSOLUTE AUTO 0.01 K/uL (0.00-0.20); BASOPHILS PERCENT AUTO 0.1 % (0.0-2.0); LYMPHOCYTES ABSOLUTE AUTO 1.21 K/uL (0.50-3.50); NEUTROPHILS ABSOLUTE AUTO 9.96 K/uL (1.40-7.00)
[2024-05-15] MEDS ORDERED: Spironolactone 25 MG Tab PO SCH (08:00)
[2024-05-15] MEDS ORDERED: Isosorbide Mononitrate 30 MG Tab.ER PO SCH (08:00)
[2024-05-15] MEDS ORDERED: DULoxetine 20 MG Cap PO SCH (08:00)
[2024-05-15] MEDS ORDERED: Carvedilol 12.5 MG Tab PO SCH (08:00)
[2024-05-15] MEDS ORDERED: PIOGLITAZONE HCL 45 MG PO SCH (08:00)
[2024-05-15] MEDS ORDERED: Escitalopram 20 MG Tab PO SCH (08:00)
[2024-05-15] MEDS ORDERED: Hydrochlorothiazide 25 MG Tab PO SCH (08:00)
[2024-05-15] MEDS ORDERED: Clopidogrel 75 MG Tab PO SCH (08:00)
[2024-05-15] MEDS ORDERED: Cholecalciferol (Vitamin D3) 25 MCG Tab PO SCH (08:00)
[2024-05-15] MEDS ORDERED: Gabapentin 300 MG Cap PO SCH (08:00)
[2024-05-15] MEDS ORDERED: Non-Formulary Medication 1 Each (Rosuvastatin [Crestor] 20 MG Tablet) PO SCH (08:00)
[2024-05-15 08:06] LABS: CARBON DIOXIDE,CO2 39.3 mmol/L (21.0-32.0); CREATININE 0.86 mg/dL (0.51-1.17); EST CRCL DRUG DOSING (CG) 51.06 mL/min; POTASSIUM,K 4.9 mmol/L (3.5-5.1)
[2024-05-15 08:08] LABS: ANION GAP 6.6 meq/L (7-15)
[2024-05-15] MEDS: Spironolactone 25 MG Tab PO SCH (08:52)
[2024-05-15] MEDS: Escitalopram 20 MG Tab PO SCH (08:52)
[2024-05-15] MEDS: Rosuvastatin 10 MG Tab PO SCH (08:53)
[2024-05-15] MEDS: Clopidogrel 75 MG Tab PO SCH (08:53)
[2024-05-15] MEDS: Cholecalciferol (Vitamin D3) 25 MCG Tab PO SCH (08:53)
[2024-05-15] MEDS: Hydrochlorothiazide 25 MG Tab PO SCH (08:54)
[2024-05-15] MEDS: Isosorbide Mononitrate 30 MG Tab.ER PO SCH (08:55)
[2024-05-15] MEDS: methylPREDNISolone Sodium Succinate 125 MG/2 ML SDV IVPUSH SCH (08:56)
[2024-05-15] MEDS: Sodium Chloride 0.9% 10 ML Syringe FLUSH PRN (09:14)
[2024-05-15] MEDS: Losartan 50 MG Tab ONE (11:19)
[2024-05-15] MEDS: Gabapentin 300 MG Cap ONE (11:19)
[2024-05-15] MEDS: DULoxetine 20 MG Cap ONE (11:19)
[2024-05-15] MEDS: Magnesium Oxide 400 MG Tab PO SCH (11:23)
[2024-05-16 07:19] VITALS: BP 119/54; PULSE 59
[2024-05-16 08:19] LABS: WHITE BLOOD CELL COUNT,WBC 16.7 K/uL (4.0-10.2)
[2024-05-16 08:20] LABS: HEMATOCRIT 44.5 % (34.0-46.0); HEMOGLOBIN 14.5 g/dL (11.7-15.5); LYMPHOCYTES PERCENT AUTO 9.4 % (10.0-50.0); MEAN CORPUSCULAR HEMOGLOBIN 30.6 pg (28.2-33.3); MEAN CORPUSCULAR HGB CONC 32.6 g/dL (31.7-36.0); MEAN CORPUSCULAR VOLUME 93.9 fL (84.0-98.0); MONOCYTES PERCENT AUTO 4.2 % (2.0-14.0); NEUTROPHILS PERCENT AUTO 86.3 % (45.0-80.0); PLATELET COUNT,PLT 331 K/uL (150-350); RED BLOOD CELL COUNT 4.74 M/uL (3.77-5.09); RED CELL DISTRIBUTION WIDTH 15.3 % (11.2-14.1)
[2024-05-16 08:21] LABS: BASOPHILS ABSOLUTE AUTO 0.02 K/uL (0.00-0.20); BASOPHILS PERCENT AUTO 0.1 % (0.0-2.0); LYMPHOCYTES ABSOLUTE AUTO 1.57 K/uL (0.50-3.50); NEUTROPHILS ABSOLUTE AUTO 14.37 K/uL (1.40-7.00)
[2024-05-16 08:23] LABS: CALCIUM 9.2 mg/dL (8.5-10.1); CARBON DIOXIDE,CO2 36.9 mmol/L (21.0-32.0); CREATININE 0.78 mg/dL (0.51-1.17); EST CRCL DRUG DOSING (CG) 56.3 mL/min; POTASSIUM,K 4.8 mmol/L (3.5-5.1)
[2024-05-16 08:25] LABS: ANION GAP 7.9 meq/L (7-15)
[2024-05-16] MEDS: predniSONE 20 MG Tab PO ONE (11:38)
[2024-05-16] MEDS: Take Home: Azithromycin 250 MG 5 Day, 6 Tab Pack PO ONE (11:38)
[2024-05-16] MEDS: Take Home: Cefuroxime 500 MG Tab, 6 Tab Pack PO ONE (11:38)
[2024-05-16] MEDS: Take Home: predniSONE 20 MG, 4 Tab Pack PO ONE (12:15)
== END 2024-05-16 12:20 | disposition home or self-care (01) | DRG 190 ==
LOC: LL.ED 15:47 → LL.MS 18:27
PROVIDERS: ADMIT Emergency Medicine; ATTEND Emergency Medicine
DX: J44.1 Chronic obstructive pulmonary disease with (acute) exacerbation (principal); J18.9 Pneumonia, unspecified organism; Z68.43 Body mass index [BMI] 50.0-59.9, adult; J44.0 Chronic obstructive pulmonary disease with (acute) lower respiratory infection; I11.0 Hypertensive heart disease with heart failure; I50.9 Heart failure, unspecified; E78.00 Pure hypercholesterolemia, unspecified; Z66 Do not resuscitate; I25.2 Old myocardial infarction; I27.20 Pulmonary hypertension, unspecified; I25.10 Atherosclerotic heart disease of native coronary artery without angina pectoris; H54.7 Unspecified visual loss; M54.2 Cervicalgia; G89.29 Other chronic pain; M19.90 Unspecified osteoarthritis, unspecified site; M81.0 Age-related osteoporosis without current pathological fracture; E11.42 Type 2 diabetes mellitus with diabetic polyneuropathy; E66.9 Obesity, unspecified; K21.9 Gastro-esophageal reflux disease without esophagitis; F41.9 Anxiety disorder, unspecified; F32.A Depression, unspecified; Z99.81 Dependence on supplemental oxygen; F17.210 Nicotine dependence, cigarettes, uncomplicated; Z79.82 Long term (current) use of aspirin; Z79.02 Long term (current) use of antithrombotics/antiplatelets; Z79.899 Other long term (current) drug therapy; Z88.8 Allergy status to other drugs, medicaments and biological substances; Z95.5 Presence of coronary angioplasty implant and graft
CPT/HCPCS: 0241U; 36415; 71046; 71275; 80048; 82947; 83605; 83735; 85025; 94640; 96365; 96375; 99223; 99233; 99239; 99285-25; A9270-GY; J0456; J0696; J2919; J3490; J7050; J7512; J7620-GY; Q9967